=== PATIENT | female | born 1950 | race Caucasian/White ===

== ENCOUNTER → 2016-05-06 | Outpatient (CLI) | payer OTHER ==
[~2016-05-06] VITALS: Ht 167.6 cm; Wt 66.0 kg
[~2016-05-06] MED LIST: CALCIUM 1,2001 EACH PO; LIPITOR10 MG PO; LIPITOR20 MG PO; PRISTIQ100 MG PO; PROTONIX40 MG PO; TOBREX5 ML BOTH EYES
[2016-05-06 07:08] VITALS: BP 123/84
== END | disposition home or self-care (01) ==
LOC: IVINF 07:00
DX: M81.0 Age-related osteoporosis without current pathological fracture (principal)
CPT/HCPCS: 96365; J3489

== ENCOUNTER 2016-11-05 15:17 | Emergency (ER) | payer OTHER ==
[~2016-11-05] VITALS: Ht 167.6 cm; Wt 65.9 kg
[2016-11-05] MEDS ORDERED: MOTRIN600 MG PO (18:17)
[2016-11-05] MEDS ORDERED: NORCO 7.5/321 TABLET PO (18:17)
[2016-11-05 18:55] VITALS: BP 137/79
== END 2016-11-05 18:56 | disposition home or self-care (01) ==
LOC: EME 15:17
DX: S20.211A Contusion of right front wall of thorax, initial encounter (principal); S76.011A Strain of muscle, fascia and tendon of right hip, initial encounter; W01.0XXA Fall on same level from slipping, tripping and stumbling without subsequent striking against object, initial encounter; Y93.E5 Activity, floor mopping and cleaning; E78.5 Hyperlipidemia, unspecified; M81.0 Age-related osteoporosis without current pathological fracture; F17.200 Nicotine dependence, unspecified, uncomplicated
CPT/HCPCS: 71101; 73502; 99281; 99284; J3010

== ENCOUNTER → 2017-05-18 | Outpatient (CLI) | payer OTHER ==
[~2017-05-18] VITALS: Ht 167.6 cm; Wt 67.3 kg
[~2017-05-18] MED LIST changes: +MOTRIN600 MG PO; +NORCO 7.5/321 TABLET PO
[2017-05-18 07:50] VITALS: BP 146/71
== END | disposition home or self-care (01) ==
LOC: IVINF 05-07 15:00
DX: M81.0 Age-related osteoporosis without current pathological fracture (principal); Z87.19 Personal history of other diseases of the digestive system
CPT/HCPCS: 96365; J3489